=== PATIENT | male | born 1960 | race African-American/Black ===

== ENCOUNTER 2016-08-01 10:57 | Emergency (ER) | payer OTHER ==
[~2016-08-01 10:57] MED LIST: CENTRUM PO; LISINOPRIL PO
== END 2016-08-01 11:19 | disposition home or self-care (01) ==
LOC: CFTX 10:57
DX: J02.9 Acute pharyngitis, unspecified (principal); I10 Essential (primary) hypertension; F17.210 Nicotine dependence, cigarettes, uncomplicated
CPT/HCPCS: 87651; 99282